=== PATIENT | male | born 1990 | race Caucasian/White ===

== ENCOUNTER 2016-03-07 16:47 | Emergency (ER) | payer OTHER ==
[~2016-03-07] VITALS: Ht 182.9 cm; Wt 110.7 kg
[~2016-03-07 16:47] MED LIST: CIPRO500 MG PO; INDOCIN25 MG PO; PEN-VEE K,VEET500 MG PO; PERCOCET 5/31 TABLET PO; TESSALON PERLE100 MG PO; ZITHROMAX Z-PA250 MG PO
[2016-03-07 17:55] LABS: EOSINOPHIL (%) 0.3 % (0-5); HEMATOCRIT 47.3 % (38.0-50.0); IMMATURE GRANULOCYTE (%) 0.3 % (0.0-0.7); IMMATURE GRANULOCYTE COUNT 0.5 K/uL; LYMPHOCYTE COUNT 0.5 K/uL (1.0-2.8); MCHC 34.9 G/DL (30.0-36.0); MCV 88.7 FL (86-99); MEAN PLAT.VOLUME 9.5 uM^3 (9.0-12.4); MONOCYTE (%) 5.3 % (3-12); MONOCYTE COUNT 0.8 K/uL (0-0.8); NEUTROPHIL (%) 90.5 % (45-76); NEUTROPHIL COUNT 13.6 K/uL (1.8-6.4); PLATELET COUNT 231 K/uL (156-360); RBC DIS.WIDTH-CV 12.7 % (11.8-14.6); RBC DIS.WIDTH-SD 40.9 % (39-53); RED BLOOD COUNT 5.33 M/uL (4.00-5.50); WHITE BLOOD COUNT 15.1 K/uL (4.1-10.2)
[2016-03-07 18:03] LABS: CHLORIDE 108 mEq/L (99-109); POTASSIUM 4.7 mEq/L (3.7-5.4); SODIUM 139 mEq/L (136-147)
[2016-03-07 18:05] LABS: GLUCOSE 115 mg/dL (70-99)
[2016-03-07 18:06] LABS: ANION GAP 12 MEQ/L (2-14)
[2016-03-07 18:09] LABS: GFR ESTIMATE (CALCULATED) > 59 mL/min/; UREA NITROGEN (BUN) 15 mg/dL (9-23)
[2016-03-07] MEDS ORDERED: ZOFRAN4 MG PO (19:11)
[2016-03-07 19:18] VITALS: BP 100/72
== END 2016-03-07 19:24 | disposition home or self-care (01) ==
LOC: EME 16:47
PROVIDERS: Emergency Medicine
DX: K52.9 Noninfective gastroenteritis and colitis, unspecified (principal); E86.0 Dehydration; F17.200 Nicotine dependence, unspecified, uncomplicated
CPT/HCPCS: 80048; 85025; 99281; 99285; J2405; J7030

== ENCOUNTER 2016-10-18 20:25 | Emergency (ER) | payer OTHER ==
[~2016-10-18] VITALS: Ht 188 cm; Wt 103.1 kg
[~2016-10-18 20:25] MED LIST changes: +ZOFRAN4 MG PO
[2016-10-18] MEDS ORDERED: AMOXICILLIN500 M1 PO (22:24)
[2016-10-18] MEDS ORDERED: MOTRIN600 MG PO (22:24)
[2016-10-18 22:28] VITALS: BP 113/70
== END 2016-10-18 22:29 | disposition home or self-care (01) ==
LOC: EME 20:25
DX: J03.90 Acute tonsillitis, unspecified (principal); R51 Headache; F17.200 Nicotine dependence, unspecified, uncomplicated
CPT/HCPCS: 87651 90; 99281; 99284; J8540

== ENCOUNTER 2017-05-14 10:50 | Emergency (ER) | payer OTHER ==
[~2017-05-14] VITALS: Ht 185.4 cm; Wt 92.7 kg
[~2017-05-14 10:50] MED LIST changes: +AMOXICILLIN500 M1 PO; +MOTRIN600 MG PO
[2017-05-14 12:03] LABS: HEMATOCRIT 48.8 % (38.0-50.0); HEMOGLOBIN 16.9 G/DL (12.5-16.6); MCH 30.8 PG (29.0-34.0); MCHC 34.6 G/DL (30.0-36.0); MCV 89.1 FL (86-99); PLATELET COUNT 221 K/uL (156-360); RBC DIS.WIDTH-CV 12.4 % (11.8-14.6); RBC DIS.WIDTH-SD 40.8 % (39-53); RED BLOOD COUNT 5.48 M/uL (4.00-5.50); WHITE BLOOD COUNT 7.4 K/uL (4.1-10.2)
[2017-05-14 12:11] LABS: ALBUMIN 4.6 g/dL (3.2-4.8); CHLORIDE 102 mEq/L (99-109); SODIUM 139 mEq/L (136-147)
[2017-05-14 12:14] LABS: GLUCOSE 98 mg/dL (70-99); TOTAL PROTEIN 7.9 g/dL (6.4-8.3)
[2017-05-14 12:15] LABS: TOTAL BILIRUBIN 0.4 mg/dL (0.0-1.0)
[2017-05-14 12:17] LABS: ALKALINE PHOSPHATASE 74 IU/L (3-129); CREATININE 1.2 mg/dL (0.6-1.3); GFR ESTIMATE (CALCULATED) > 59 mL/min/ (58.99-99999)
[2017-05-14 12:18] LABS: UREA NITROGEN (BUN) 10 mg/dL (9-23)
[2017-05-14 12:19] LABS: AST (GOT) 19 IU/L (2-34)
[2017-05-14 12:20] LABS: ALT (GPT) 14 IU/L (3-49)
[2017-05-14] MEDS ORDERED: BENTYL20 MG PO (14:19)
[2017-05-14] MEDS ORDERED: ZOFRAN ODT4 MG PO (14:19)
[2017-05-14 14:29] LABS: APPEARANCE SL.HAZY ((CLEAR)); BILIRUBIN NEGATIVE; BLOOD NEGATIVE; COLOR AMBER ((YELLOW)); GLUCOSE (STRIP) NEGATIVE; KETONES NEGATIVE; LEUKOCYTES NEGATIVE; NITRITE NEGATIVE; PROTEIN (STRIP) 30; SPECIFIC GRAVITY 1.032 (1.000-1.030); UROBILINOGEN 0.2 MG/DL (0.2-1.0)
[2017-05-14 14:32] VITALS: BP 113/55
[2017-05-14 14:35] LABS: BACTERIA NONE SEEN /HPF; CALCIUM OXALATE CRYSTALS 4+ /HPF; EPITHELIAL CELLS RARE /HPF; MUCUS 2+ /LPF; RED BLOOD CELLS 0-5 /HPF (0-5); UCUL ADDED? NO; WHITE BLOOD CELLS 0-5 /HPF (0-5)
[2017-05-14 15:02] LABS: LIPASE 10 U/L (1.0-51.0)
== END 2017-05-14 14:36 | disposition home or self-care (01) ==
LOC: EME 10:50
DX: K52.9 Noninfective gastroenteritis and colitis, unspecified (principal); J02.9 Acute pharyngitis, unspecified; F17.200 Nicotine dependence, unspecified, uncomplicated
CPT/HCPCS: 80053; 81003; 83690; 85027; 87651 90; 99281; 99284

== ENCOUNTER 2017-09-10 10:52 | Emergency (ER) | payer OTHER ==
[~2017-09-10] VITALS: Ht 185.4 cm; Wt 93.9 kg
[~2017-09-10 10:52] MED LIST changes: +BENTYL20 MG PO; +ZOFRAN ODT4 MG PO
[2017-09-10 11:46] LABS: HEMATOCRIT 45.5 % (38.0-50.0); HEMOGLOBIN 15.3 G/DL (12.5-16.6); MCH 30.8 PG (29.0-34.0); MCHC 33.6 G/DL (30.0-36.0); MCV 91.5 FL (86-99); PLATELET COUNT 283 K/uL (156-360); RBC DIS.WIDTH-CV 12.4 % (11.8-14.6); RBC DIS.WIDTH-SD 41.5 % (39-53); RED BLOOD COUNT 4.97 M/uL (4.00-5.50); WHITE BLOOD COUNT 8.2 K/uL (4.1-10.2)
[2017-09-10 11:59] LABS: CHLORIDE 108 mEq/L (99-109); POTASSIUM 4.4 mEq/L (3.7-5.4); SODIUM 145 mEq/L (136-147)
[2017-09-10 12:00] LABS: GLUCOSE 91 mg/dL (70-99)
[2017-09-10 12:04] LABS: CREATININE 0.9 mg/dL (0.6-1.3); GFR ESTIMATE (CALCULATED) > 59 mL/min/ (58.99-99999)
[2017-09-10 12:05] LABS: UREA NITROGEN (BUN) 9 mg/dL (9-23)
[2017-09-10 12:10] LABS: TROP-I INTERPRETATION NEGATIVE; TROPONIN-I < 0.01 ng/mL (0.0-0.30)
[2017-09-10 12:31] LABS: D-DIMER ELISA < 150.00 ng/mLDDU (<230)
[2017-09-10 13:32] LABS: APPEARANCE CLEAR ((CLEAR)); BILIRUBIN NEGATIVE; BLOOD NEGATIVE; COLOR YELLOW ((YELLOW)); GLUCOSE (STRIP) NEGATIVE; KETONES NEGATIVE; LEUKOCYTES NEGATIVE; NITRITE NEGATIVE; PROTEIN (STRIP) NEGATIVE; SPECIFIC GRAVITY 1.023 (1.000-1.030); UCUL ADDED? NO
[2017-09-10 13:40] LABS: AMPHETAMINE NEGATIVE (500 ng/mL); BARBITURATES NEGATIVE (200 ng/mL); BENZODIAZEPINES NEGATIVE (150 ng/mL); BUPRENORPHINE NEGATIVE (10 ng/mL); COCAINE PRESUMPTIVE POSITIVE (150 ng/mL); METHADONE NEGATIVE (200 ng/mL); METHAMPHETAMINE NEGATIVE (500 ng/mL); OPIATES (MORPHINE) NEGATIVE (100 ng/mL); OXYCODONE NEGATIVE (100 ng/mL); PHENCYCLIDINE NEGATIVE (25 ng/mL); PROPOXYPHENE NEGATIVE (300 ng/mL); THC CANNABINOIDS PRESUMPTIVE POSITIVE (50 ng/mL); TRICYCLIC ANTIDEPRESSANTS NEGATIVE (300 ng/mL)
[2017-09-10 16:52] VITALS: BP 114/64
== END 2017-09-10 16:53 | disposition left against medical advice (07) ==
LOC: EME 10:52 → EXP 10:52
PROVIDERS: Physician Assistant Medical
DX: R55 Syncope and collapse (principal); R07.9 Chest pain, unspecified; F19.10 Other psychoactive substance abuse, uncomplicated; F17.200 Nicotine dependence, unspecified, uncomplicated
CPT/HCPCS: 70450; 71046; 71275; 72125; 80048; 81003; 84484; 84999; 85027; 85379; 93005; J7030